=== PATIENT | male | born 1960 | race Caucasian/White ===

== ENCOUNTER 2017-09-14 07:46 | Emergency (ER) | payer OTHER ==
[~2017-09-14] VITALS: Ht 175.3 cm; Wt 99.8 kg
[2017-09-14] MEDS ORDERED: KETOROLAC TROME10 MG PO (08:16)
== END 2017-09-14 09:13 | disposition home or self-care (01) ==
LOC: ED 07:46
DX: S83.92XA Sprain of unspecified site of left knee, initial encounter (principal); X50.9XXA Other and unspecified overexertion or strenuous movements or postures, initial encounter; Y93.01 Activity, walking, marching and hiking
CPT/HCPCS: 73560; 99283